=== PATIENT | female | born 1945 | race Asian ===

== ENCOUNTER → 2016-12-15 | Outpatient (CLI) | payer MEDICARE, OTHER ==
--- NOTE | 2016-12-15 23:29 | RADRPT ---
PROCEDURE: XR Knees. CLINICAL INDICATION: Bilateral knee pain. TECHNIQUE: Total of six views. Frontal, oblique, and lateral views of both knees. COMPARISON: No prior study is available for comparison. FINDINGS: There is no fracture or dislocation. The soft tissues are normal. There are degenerative changes of both knees with osteophytes arising from all 3 joint compartment m argins. There is bilateral medial joint compartment narrowing and deformity with left worse than ri ght. There is no lytic or blastic lesion. There is no radiopaque foreign body. IMPRESSION: 1. Severe degenerative changes of both knees with left worse than right. RPTAT: QQ .Aguilar Aiken MD, MD Date Time Electronically viewed and signed by .Aguilar Aiken MD, MD on 12/15/2016 23:29 .R/
== END | disposition home or self-care (01) ==
LOC: RAD 15:55
PROVIDERS: ATTEND Specialist
DX: M25.562 Pain in left knee (principal); M25.561 Pain in right knee